=== PATIENT | female | born 1965 | race Caucasian/White ===

== ENCOUNTER 2018-03-14 14:02 | Outpatient (CLI) | payer OTHER ==
--- NOTE | 2018-03-14 22:02 | RAD ---
CERVICAL SPINE THREE VIEWS: 03/14/2018 HISTORY: Neck pain. [employer]SI disability evaluation. COMPARISON: None available. FINDINGS: The C1 to the cervicothoracic junction is seen on the lateral view. There are post surgical changes related to anterior as well as posterior fusion of the C4 through C7 levels with anterior plate and s crews transfixing this level, as well as pedicular screws and posterior rods also transfixing these l evels. Laminectomy defects are present at these levels. Intradiskal prostheses are also noted. The re is slight anterolisthesis of C7 on T1. No fracture is seen. There is no evidence of a hardware c omplication. Prevertebral soft tissues are within normal limits. There is left apical pleural thick ening noted. IMPRESSION: 1. Mild anterolisthesis of C7 on T1. 2. Post surgical changes related to anterior as well as posterior fusion of the C4 through C7 verteb ral bodies. POS: NUSRAT
== END 2018-03-14 14:03 | disposition home or self-care (01) ==
LOC: NAV RAD 14:02
PROVIDERS: ATTEND Family Medicine
DX: Z02.71 Encounter for disability determination (principal); M50.30 Other cervical disc degeneration, unspecified cervical region; M43.13 Spondylolisthesis, cervicothoracic region; Z98.1 Arthrodesis status
CPT/HCPCS: 72040

== ENCOUNTER 2020-09-14 14:40 | Emergency (ER) | payer MEDICARE ==
--- NOTE | 2020-09-14 16:13 | RAD ---
LEFT ANKLE 3 VIEWS: HISTORY: Injury left ankle pain FINDINGS: Soft tissue swelling is present. The ankle mortise is maintained. No dislocation is identified. There is a nondisplaced fracture involving the inferior aspect of the lateral malleolus.
--- NOTE | 2020-09-14 16:17 | RAD ---
XR Foot Lt 3 View STANDARD HISTORY: Injury, left foot pain FINDINGS: No fracture or dislocation is identified.
== END 2020-09-14 17:04 | disposition home or self-care (01) ==
LOC: NAV ERS 14:40
DX: S82.65XA Nondisplaced fracture of lateral malleolus of left fibula, initial encounter for closed fracture (principal); F17.210 Nicotine dependence, cigarettes, uncomplicated; W18.30XA Fall on same level, unspecified, initial encounter
CPT/HCPCS: 29515

== ENCOUNTER 2020-10-11 16:48 | Emergency (ER) | payer MEDICARE ==
--- NOTE | 2020-10-11 17:45 | RAD ---
Exam:3 views left ankle HISTORY: Pain and injury. COMPARISON: 09/14/2020 FINDINGS: Remote lateral malleolus fracture. There is evidence of lateral soft tissue swelling. Joint spaces are preserved. Ankle mortise is intact. IMPRESSION: 1. Lateral soft tissue swelling, without evidence of acute fracture.
== END 2020-10-11 18:15 | disposition home or self-care (01) ==
LOC: NAV ERS 16:48
DX: S93.412A Sprain of calcaneofibular ligament of left ankle, initial encounter (principal); F17.210 Nicotine dependence, cigarettes, uncomplicated; Z79.899 Other long term (current) drug therapy; M51.36 Other intervertebral disc degeneration, lumbar region; X50.1XXA Overexertion from prolonged static or awkward postures, initial encounter
CPT/HCPCS: 29515